=== PATIENT | female | born 1940 | race Caucasian/White ===

== ENCOUNTER 2021-12-18 02:24 | Emergency (ER) | payer MEDICARE ==
[2021-12-18 04:16] LABS: BASOPHIL 0.8 % (0-2); HCT 40.1 % (37.0-47.0); HGB 13.6 g/dl (12.5-16.0); INR 1.1 (0.9-1.2); LYMPHOCYTE 25.9 % (15-48); MCH 30.9 pg (25.0-31.0); MCHC 33.9 g/dL (32.0-36.0); MCV 91.1 fL (78.0-100.0); MONOCYTE 8.5 % (0-12); MPV 11.9 fL (6.0-9.5); NEUTROPHIL 60.7 % (41-80); NRBC 0; PLT 154 K/uL (150-400); PROTHROMBIN TIME 13.6 SECONDS (11.8-13.4); RDW 12.3 % (11.5-14.0); WBC 6.3 K/uL (4.0-10.5)
[2021-12-18 04:18] LABS: ALBUMIN 3.5 g/dL (3.4-5.0); BILIRUBIN - TOTAL 0.5 mg/dL (0.2-1.0); BUN/CREAT RATIO (CALC) 16.7 RATIO; CREATININE 0.84 mg/dL (0.51-0.95); GLOBULIN (CALCULATION) 3.5 g/dL
[2021-12-18 04:42] LABS: BILIRUBIN NEGATIVE (NEGATIVE); BLOOD TRACE-INTACT Ery/uL (NEGATIVE); CLARITY CLEAR (CLEAR); COLOR YELLOW (YELLOW); GLUCOSE (U) NORMAL (NORMAL); LEUKOCYTES NEGATIVE Leu/uL (NEGATIVE); NITRITE NEGATIVE (NEGATIVE); PROTEIN NEGATIVE (NEGATIVE); SPECIFIC GRAVITY 1.015 (1.001-1.030); UROBILINOGEN 0.2 mg/dL (0.2-1.0)
[2021-12-18 04:49] LABS: URINARY RBC RARE
[2021-12-18 04:50] LABS: BACTERIA TRACE
== END 2021-12-18 06:22 | disposition home or self-care (01) ==
LOC: FER 02:24
PROVIDERS: Internal Medicine
DX: R07.89 Other chest pain (principal); R35.0 Frequency of micturition
CPT/HCPCS: 36415; 71045; 80053; 81001; 84484; 85025; 85610; 85730; 93005